=== PATIENT | female | born 2000 | race Caucasian/White ===

== ENCOUNTER 2022-08-15 18:48 | Outpatient (CLI) | payer MEDICAID, SELFPAY ==
[2022-08-15] VITALS (32 sets, daily range): BP systolic 100–107; BP diastolic 53–59; PULSE 121–138; TEMP 37.4–37.6; O2SAT 92–100; BMI 24.3
--- NOTE | 2022-08-15 19:22 | USR_ITS ---
PROCEDURE INFORMATION: Exam: US , Limited Exam date and time: 08/15/2022 7:41 PM Age: 21 years old Clinical indication: Lmp or gestational age (in weeks): 28w3d; Other: Legs are numb and painful. ; Patient HX: PT has not previous images at our facility. PT is here visiting; Additional info: Limited care LABS AND CLINICAL REPORTS: Serum Choriogonadotropin (HCG): 0 mIU/mL Last menstrual period start date: 01/27/2022 Gestational age (Established): 28 w 4 d Estimated due date (Established): 11/03/2022 TECHNIQUE: Imaging protocol: Real-time ultrasound of the maternal uterus with image documentation. Exam focused on the clinical indication. COMPARISON: No relevant prior studies available. FINDINGS: Gestation: Intrauterine gestation. heart rate: 150 bpm position: facial profile: facial profile is normal. presentation: Cephalic Placenta: Posterior grade 0 placenta without previa. Amniotic fluid: Amniotic fluid volume is normal. Amniotic fluid index: IBRAHIMA is 16.2 cm. ANATOMY: midline falx: midline falx is normal. upper lip and nose: upper lip and nose are normal. heart four-chamber view, heart size and position: heart four-chamber view, size, and position are normal. three-vessel view: three-vessel view is normal. left ventricular outflow tract: left ventricular outflow tract is normal. kidneys: kidneys are normal. stomach: stomach is normal. urinary bladder: bladder is normal. Umbilical cord vessel number: 3-vessel umbilical cord BIOMETRY: Gestational age (AUA): 28 w 3 d Estimated due date (AUA): 11/04/2022 Estimated weight: 2LBS 11OZS. 48% percentile Biparietal diameter (BPD): 7 cm. EGA (BPD) is 28 w 0 d Head circumference (HC): 26.2 cm. EGA (HC) is 28 w 4 d Abdominal circumference (AC): 24.1 cm. EGA (AC) is 28 w 2 d Femur length (FL): 5.4 cm. EGA (FL) is 28 w 4 d Cephalic Index (CI): 79.3 % HC/AC: 1.09 FL/HC: 20.6 % FL/BPD: 77.4 % FL/AC: 22.4 % MATERNAL: Cervix: Cervical length measures 5.3 cm. Right ovary/adnexa: Right ovary measures 0 cm x 0 cm x 0 cm. Right ovarian volume is 0 mL. Left ovary/adnexa: Left ovary measures 0 cm x 0 cm x 0 cm. Left ovarian volume is 0 mL. US/US OB lmt w/ BPP wo NST IMPRESSION: 1. Single intrauterine at 28 weeks 3 days gestational age. 2. heart rate 150 bpm. 3. No new findings of placenta previa or abruption.
--- NOTE | 2022-08-15 21:09 | PC.NURSE ---
Patient stated that she was probably going to go home and sleep instead of going to the ER
--- NOTE | 2022-08-15 21:16 | PC.NURSE ---
patient support person stated that the patient told her that since she had drank water her legs felt a bit better
== END 2022-08-15 21:18 | disposition home or self-care (01) ==
LOC: OPOB 18:50 → OBGYN 18:51
PROVIDERS: Visit Provider Obstetrics & Gynecology
DX: O26.899 Other specified pregnancy related conditions, unspecified trimester (principal); Z3A.00 Weeks of gestation of pregnancy not specified; M79.606 Pain in leg, unspecified
CPT/HCPCS: 59025; 76815; 76819; 99211

== ENCOUNTER 2025-08-21 17:38 | Emergency (ER) | payer SELFPAY ==
[2025-08-21 17:48] VITALS: BP 117/82; PULSE 73; TEMP 36.7; O2SAT 100
--- NOTE | 2025-08-21 18:11 | ED_ITS ---
HPI - Dental/Oral General: Chief complaint: Dental/Oral Stated complaint: R side upper pain bump on upper jaw Time Seen by Provider: 08/21/25 17:56 Source: patient Mode of arrival: ambulatory Limitations: no limitations History of Present Illness: Patient is a 24-year-old female who presents the emergency department complaining of right upper dental pain that has been bothering her for the past few days. Reports a history of dental abscess, states this feels similar. States he just moved from [place] and has been trying to get into see a dentist, has been unable to see one yet. Notes that pain and swelling has extended into the face, and she has pain with chewing. However is not reporting any trouble breathing or tongue or throat swelling. No fevers are reported. Reporting 10/10 pain, want requesting something for pain. Vitals are stable, afebrile nontoxic-appearing female at this time. MD Complaint: tooth pain Onset (ago): day(s) Duration: constant Severity: severe Exacerbating factors: chewing Context: history of dental caries and poor dental care Associated symptoms: Denies ear or mastoid pain, fever(s) or odynophagia Related Data Home Medications ?Medication ?Instructions ?Recorded ?Confirmed 08/15/22 Previous Rx's ?Medication ?Instructions ?Recorded clindamycin HCl 300 mg capsule 300 mg PO BID 7 days #1 4 caps 08/21/25 Allergies Allergy/AdvReac Type Severity Reaction Status Date / Time Penicillins Allergy ALGY-Anaphy Verified 08/21/25 17:53 laxis Review of Systems General: Reports: 10 or more systems reviewed and unremarkable except in HPI a nd below Const: Denies: fever(s), chills or fatigue Eyes: Denies: change in vision ENMT: Reports: dental pain and sinus pain; Denies: throat pain, uvular edema, odynophagia, ear or mastoid pain or nasal discharge Card: Denies: chest pain, palpitations, swelling of feet/ankles or lightheadedness Resp: Denies: dyspnea, productive cough or wheezing GI: Denies: abdominal pain, nausea, vomiting, diarrhea or constipation : Denies: flank pain, difficulty voiding, dysuria or urinary frequency Musc: Denies: neck pain, back pain or joint pain Skin/Breast: Denies: rash Neuro: Denies: headache(s), numbness in extremities or weakness in extremities Physical Exam Const: COMMON NORMALS: no acute distress, patient oriented x3 and no limitations GENERAL APPEARANCE: cooperative, comfortable and well developed ORIENTATION/CONSCIOUSNESS: Yes awake, Yes oriented to person, Yes oriented to place and Yes oriented to time HENMT: COMMON NORMALS: normocephalic, atraumatic and hearing grossly normal bilaterally HEAD & SCALP: normocephalic and atraumatic THROAT: no uvular edema OTHER: Poor dental care, multiple restorations and dental caries. Tenderness to palpation of the gingiva in the right upper dentition with no obvious edema. Tenderness in the right face with no obvious swelling. Eye: COMMON NORMALS: Equal, round and reactive pupils present, EOMs intact bilaterally and conjunctivae normal CONJUNCTIVA: Yes conjunctivae normal PUPIL: Yes Equal, round and reactive pupils present Neck/C-Spine: COMMON NORMALS: full ROM and supple Resp: COMMON NORMALS: normal respiratory effort, No retractions and No use of accessory muscles Extremity: COMMON NORMALS: normal to inspection, full ROM and capillary refill normal Neuro: COMMON NORMALS: patient oriented x3, moves all extremities, no focal motor deficits and no sensory deficits noted SENSORIUM/ORIENTATION: Yes oriented to person, Yes oriented to place and Yes oriented to time Skin: COMMON NORMALS: no rashes or lesions noted GENERAL SKIN EXAM: no rashes or lesions noted Course Vital Signs: Vital signs: Vital Signs Temperature 98.1 F 08/21/25 17:48 Pulse Rate 73 08/21/25 17:48 Blood Pressure 117/82 08/21/25 17:48 Pulse Oximetry 100 08/21/25 17:48 Oxygen Delivery Me thod Room Air 08/21/25 17:48 MDM - Dental/Oral Medical Decision Making Patient with overall poor dental care and signs and symptoms of apical abscess, nontoxic-appearing, afebrile, and no signs of acute respiratory demise. Will treat with clindamycin for dental abscess, she is instructed to follow-up with dentist for further management and there is no further workup necessary in the ED at this time. No radiology studies performed this visit Discharge Plan Discharge Patient Disposition: Home Clinical Impression: Dental abscess Condition: Stable Prescriptions: New clindamycin HCl 300 mg capsule 300 mg PO BID 7 Days Qty: 14 0RF No Action Discharge Orders: Discharge ED (Routine); Ordered 08/21/25 Ordered By: Cuong Estrada Patient Instructions: Patient Portal & Josh Instructions Activity Restrictions/Additional Instructions: Dental Abscess Discharge Diagnosis: Right upper dental abscess (localized acute apical abscess). Treatment Provided: - 10 mg intramuscular dexamethasone administered in the emergency department for pain and inflammation control. - Discharge with oral clindamycin, to be taken twice daily for one week (dose per prescriber; typical adult dosing is 300 mg every 6 hours for severe infection, but twice daily dosing may be used for moderate infection or based on clinical judgment). - Urgent dental follow-up recommended for definitive management (e.g., incision and drainage, root canal, or extraction). --- Discharge Instructions: 1. Medication Instructions - Take clindamycin exactly as prescribed. Do not skip doses or stop early, even if symptoms improve, unless instructed by a healthcare provider. - Common side effects include diarrhea, nausea, and abdominal discomfort. Clindamycin carries a risk of Clostridioides difficile infection, which may present as severe, watery, or bloody diarrhea, abdominal pain, and fever. If these symptoms occur, seek medical attention promptly. - Take clindamycin capsules with a full glass of water to reduce the risk of esophageal irritation. 2. Pain and Swelling Management - Use [id number] analgesics for pain control. Evidence supports the combination of ibuprofen (400?600 mg) and acetaminophen (1000 mg) for dental pain, unless contraindicated. - The dexamethasone administered may reduce pain and swelling for the first 12 hours post-discharge. - Apply a cold compress to the affected cheek for 15?20 minutes at a time to help with swelling. 3. Oral Hygiene and Home Care - Maintain gentle oral hygiene. Morrison teeth carefully, avoiding the affected area if painful. - Rinse mouth with warm salt water (1/2 teaspoon salt in 8 oz water) 2?3 times daily to reduce local inflammation. - Avoid chewing on the affected side until definitive dental treatment is completed. 4. Follow-Up - Schedule an urgent appointment with a dentist within 1?2 days for definitive management (e.g., drainage, root canal, or extraction). Antibiotics alone are not curative; source control is essential. - If unable to obtain dental follow-up within 48 hours, contact a healthcare provider for further guidance. 5. Return Precautions Seek immediate medical attention for any of the following: - Increasing facial swelling, redness, or pain. - Difficulty swallowing, breathing, or opening the mouth. - Fever (>38?C/100.4?F), chills, or feeling generally unwell (malaise). - New or worsening trismus (jaw stiffness). - Development of severe, persistent, or bloody diarrhea, abdominal pain, or cramping (possible C. difficile infection). - Signs of spreading infection (neck swelling, chest pain, voice changes). 6. Additional Notes - Antibiotic therapy may be discontinued 24 hours after complete resolution of symptoms, but only after consultation with a dentist or physician. - If symptoms worsen or do not improve after 3 days of antibiotics, contact a healthcare provider for reassessment and possible adjustment of therapy. --- Summary: Antibiotics are an adjunct to definitive dental care, not a substitute. Prompt dental follow-up is essential for cure and prevention of complications. Monitor for signs of systemic infection or adverse drug reactions, and seek care as indicated. Print Language: Bulgarian Coding Level of Care Code ED Sleeve Machine Tender for Alison Dominguez
[2025-08-21] MEDS: HYDROcodone-acetaminophen 7.5-325 mg Tablet 2 TAB PO (18:12)
[2025-08-21 18:15] VITALS: RESP 17
== END 2025-08-21 18:21 | disposition home or self-care (01) ==
PROVIDERS: Emergency Provider Physician Assistant
DX: K04.7 Periapical abscess without sinus (principal)
CPT/HCPCS: 96372; 99284; J1100; J9999